=== PATIENT | male | born 2000 | race Hispanic/Latino ===

== ENCOUNTER 2021-10-01 10:24 | Emergency (ER) | payer OTHER ==
[~2021-10-01] VITALS: Ht 172.7 cm; Wt 68.0 kg
[2021-10-01] MEDS ORDERED: IBUPROFEN600 MG PO (11:31)
[2021-10-01] MEDS ORDERED: FLEXERIL5 M1 PO (11:31)
[2021-10-01 11:52] VITALS: BP 126/78
== END 2021-10-01 11:52 | disposition home or self-care (01) | DRG 563 ==
LOC: ED 10:24
DX: S39.012A Strain of muscle, fascia and tendon of lower back, initial encounter (principal); X50.0XXA Overexertion from strenuous movement or load, initial encounter; Y93.89 Activity, other specified; Y92.89 Other specified places as the place of occurrence of the external cause; Y99.0 Civilian activity done for income or pay